=== PATIENT | male | born 1970 | race Caucasian/White ===

== ENCOUNTER 2022-03-30 08:15 | Emergency (ER) | payer MEDICAID ==
--- NOTE | 2022-03-30 08:34 | ED Physician Documentation ---
PD HPI ABD PAIN - Stated complaint Stated Complaint: HEAD PX/STOMACH DISCOMFORT - Chief complaint Chief Complaint: General - History obtained from History obtained from: Patient - History of Present Illness Timing - onset: Last night Timing - duration: Hours Timing - details: Gradual onset, Still present Quality: Sharp, Pain Location: LUQ, LLQ Radiation: No: Chest, , Lower back, Left flank, Left shoulder, Right flank, Right shoulder, Upper back Improved by: Laying still, Other Worsened by: Moving, Palpation Associated symptoms: Diarrhea, Other (chills). No: Fever, Nausea Similar symptoms before: Has not had sx before Recently seen: Not recently seen - Additional information Additional information: 51-year-old Maxi Alexander is previously healthy about 4 days ago he developed acute nausea vomiting and diarrhea. He developed diarrhea that persisted and he continues to have diarrhea. He has now developed abdominal pain in the left upper quadrant and he is here for evaluation. He has developed chills. Review of Systems Constitutional: reports: Chills. denies: Fever Eyes: denies: Decreased vision Ears: denies: Ear pain Nose: denies: Rhinorrhea / runny nose, Congestion Throat: denies: Sore throat Cardiac: denies: Chest pain / pressure, Palpitations Respiratory: denies: Dyspnea, Cough GI: reports: Abdominal Pain, Nausea, Vomiting (resolved), Diarrhea Skin: denies: Rash Musculoskeletal: denies: Neck pain, Back pain, Extremity pain Neurologic: denies: Generalized weakness, Focal weakness, Numbness PD PAST MEDICAL HISTORY - Present Medications Home Medications: Ambulatory Orders Medication Instructions Recorded Confirmed Ciprofloxacin HCl [Cipro] 500 mg PO BID #14 tablet 03/30/22 - Allergies Allergies/Adverse Reactions: Allergies Allergy/AdvReac Type Severity Reaction Status Date / Time amoxicillin Allergy Rash Verified 03/30/22 08:25 PD ED PE NORMAL - Vitals Vital signs reviewed: Yes (hypertensive) - General General: Alert and oriented X 3, No acute distress, Well developed/nourished - HEENT HEENT: Atraumatic, PERRL, EOMI - Neck Neck: Supple, no meningeal sign - Cardiac Cardiac: RRR, No murmur - Respiratory Respiratory: No respiratory distress, Clear bilaterally - Abdomen Abdomen: Normal bowel sounds, Soft, Non distended, No organomegaly, Other (LUQ tenderness and left sided tenderness to the abdomen in general. No garding or rebound. ) - Back Back: No CVA TTP, No spinal TTP - Derm Derm: Normal color, Warm and dry, No rash - Extremities Extremities: No deformity, No edema - Neuro Neuro: Alert and oriented X 3, platform builder 2-12 intact, No motor deficit, No sensory deficit, Normal speech Eye Opening: Spontaneous Motor: Obeys Commands Verbal: Oriented GCS Score: 15 - Psych Psych: Normal mood, Normal affect Results - Vitals Vitals: Vital Signs - 24 hr 03/30/22 03/30/22 03/30/22 08:25 10:29 11:39 Temperature 37.0 C 36.8 C Heart Rate 84 71 71 Respiratory 18 18 18 Rate Blood Pressure 148/107 H 146/100 H 135/93 H O2 Saturation 99 97 98 03/30/22 11:40 Temperature 36.8 C Heart Rate 71 Respiratory 18 Rate Blood Pressure 135/93 H O2 Saturation 98 Oxygen O2 Source Room air - Labs Labs: Laboratory Tests 03/30/22 03/30/22 08:40 08:40 WBC 7.7 RBC 5.00 Hgb 15.3 Hct 46.3 MCV 92.6 MCH 30.6 MCHC 33.0 RDW 12.8 Plt Count 236 MPV 10.3 Neut # (Auto) 5.1 Lymph # (Auto) 1.6 [place] # (Auto) 0.6 Eos # (Auto) 0.2 Baso # (Auto) 0.1 Absolute Nucleated RBC 0.00 Nucleated RBC % 0.0 Sodium 138 Potassium 4.1 Chloride 106 Carbon Dioxide 27 Anion Gap 5.0 L BUN 11 Creatinine 0.8 Estimated GFR (MDRD) 102 Glucose 106 H Calcium 9.0 Total Bilirubin 1.2 H AST 21 ALT 19 Alkaline Phosphatase 56 Total Protein 6.8 Albumin 4.1 Globulin 2.7 Albumin/Globulin Ratio 1.5 Lipase 30 - Rads (name of study) CT ab/pel Radiology: Prelim report reviewed (see below), EMP read indepedently PD Medical Decision Making - ED course Reviewed Lab Results: We ordered and reviewed get a complete blood count and Electrolytes, kidney and liver function and all tests were normal. The patient did have reproducible tenderness and a CT scan of the abdomen pelvis was undertaken with the following findings Impression: 1. Findings suspicious for acute colitis, likely infectious, less likely inflammatory. Correlate clinically. No changes of bowel obstruction or perforation. Nonspecific hepatic hypodensities and hyperdensity. These are likely cyst and him hemangiomas. Consider further evaluation of liver with liver protocol MRI on an outpatient basis. The patient appears to have an infectious colitis and he has had 5 days of diarrhea. He is placed on empiric antibiotic therapy and a stool is obtained for a PCR. This will not be available until tomorrow. We will place the patient on a course of Cipro. ED course: 51-year-old male with abdominal pain and diarrhea is diagnosed with acute colitis and we will place him on a course of Cipro. PCR is pending. Departure - Departure Disposition: Home, Self Care Clinical Impression: Colitis Condition: Stable Instructions: ED Gastroenteritis Bacterial Follow-Up: [facility] [Provider Group] Prescriptions: Ciprofloxacin HCl [Cipro] 500 mg PO BID #14 tablet Comments: Edward, today it looks like you have a bacterial infection in your colon likely related to some contamination of a food. We do have a test on the stool pending results will be back tomorrow. I have E scribed some Cipro to the [facility] in [place]. This is an antibiotic you will need to take twice per day. Drink extra fluids and it is okay to take Imodium which is an [id number] symptom control for the diarrhea. Discharge Date/Time: 03/30/22 12:57
[2022-03-30 08:44] LABS: BASOPHILS # (AUTO) 0.1 10^3/uL (0.0-0.1); BASOPHILS % (AUTO) 1.8 %; EOSINOPHILS # (AUTO) 0.2 10^3/uL (0.0-0.7); EOSINOPHILS % (AUTO) 2.9 %; HCT - HEMATOCRIT 46.3 % (42.0-52.0); HGB - HEMOGLOBIN 15.3 g/dL (14.0-18.0); LYMPHOCYTES # (AUTO) 1.6 10^3/uL (1.5-3.5); LYMPHOCYTES % (AUTO) 20.5 %; MEAN CORPUSCULAR HEMOGLOBIN 30.6 pg (27.0-31.0); MEAN CORPUSCULAR VOLUME 92.6 fL (80.0-94.0); MEAN PLATELET VOLUME 10.3 fL (7.4-11.4); MONOCYTES # (AUTO) 0.6 10^3/uL (0.0-1.0); NEUTROPHILS # (AUTO) 5.1 10^3/uL (1.5-6.6); NEUTROPHILS % (AUTO) 66.5 %; PLT - PLATELET COUNT 236 10^3/uL (130-450); RED CELL DISTRIBUTION WIDTH 12.8 % (12.0-15.0); WHITE BLOOD COUNT 7.7 x10^3/uL (4.8-10.8)
[2022-03-30 08:57] LABS: ALBUMIN 4.1 g/dL (3.2-5.5); ALBUMIN/GLOBULIN RATIO 1.5 (1.0-2.2); BILIRUBIN,TOTAL 1.2 mg/dL (0.2-1.0); CREATININE 0.8 mg/dL (0.6-1.2); POTASSIUM 4.1 mmol/L (3.5-5.0); TOTAL PROTEIN 6.8 g/dL (6.7-8.2)
[2022-03-30] MEDS ORDERED: iohexoL-300 100 ML VIAL ONE (09:04)
[2022-03-30] MEDS ORDERED: iohexoL-300 100 ML VIAL IVP ONE (09:28)
--- NOTE | 2022-03-30 09:54 | CT Report ---
PROCEDURE: ABDOMEN/PELVIS W INDICATIONS: L sided tender abdominal pain CONTRAST: 100ml Omnipaque 300 TECHNIQUE: After the administration of IV contrast, 5 mm thick sections acquired from the diaphragms to the symp hysis. 5 mm thick coronal and sagittal reformats were acquired. For radiation dose reduction, the f ollowing was used: automated exposure control, adjustment of mA and/or kV according to patient size. COMPARISON: None. FINDINGS: Image quality: Excellent. ABDOMEN: Lung bases: Lung bases are clear. Heart size is normal. Solid organs: The liver is normal size. There are a few hypodensities and a small hyperdensity in th e liver. The largest hypodensity in the left hepatic lobe measures 1.7 cm. Hyperdensity in the inferi or right hepatic lobe measures about 7 mm. The gallbladder is partially decompressed. Biliary tree is nondilated. The pancreas, spleen, and adrenal glands are normal. Kidneys demonstrate normal size and enhancement, without hydronephrosis. No hydroureter or ureteral calcification. Peritoneum and bowel: Stomach and small bowel are within normal limits. There is mild diffuse wall t hickening of the colon. There is mild hyperemia of the mucosa involving the descending colon and exte nding into the rectum. The proximal colon demonstrates mild mural edema. No significant pericolonic i nflammation. No extraluminal gas or adjacent fluid. Nodes and vessels: No retroperitoneal or mesenteric adenopathy by size criteria. Aorta and inferior vena cava are normal in size. Miscellaneous: No ventral hernias. PELVIS: Genitourinary: Bladder wall thickness is normal. Prostate gland is normal size with several coarse c alcifications present. Miscellaneous: No inguinal hernias or adenopathy. Bones: No suspicious bony lesions. No vertebral body compression fractures. IMPRESSION: 1. Findings suspicious for acute nelson colitis, likely infectious, less likely inflammatory. Correlate clinically. 2. No changes of bowel obstruction or perforation. 3. Nonspecific hepatic hypodensities and hyperdensity. These are likely cysts and hemangiomas. Consid er further evaluation of the liver with liver protocol MRI on an outpatient basis. Reviewed by: Kamila Weber MD on 03/30/2022 8:53 AM [facility] Approved by: Kamila Weber MD on 03/30/2022 8:53 AM [facility] Station ID: [id number]
[2022-03-30 11:40] VITALS: BP 135/93
[2022-03-31 21:07] LABS: ADENOVIRUS F 40/41 Not Detected (Not Detected); ASTROVIRUS Not Detected (Not Detected); C DIFFICILE TOXIN A/B Detected (Not Detected); CAMPYLOBACTER Not Detected (Not Detected); CRYPTOSPORIDIUM Not Detected (Not Detected); CYCLOSPORA CAYETANENSIS Not Detected (Not Detected); ENTAMOEBA HISTOLYTICA Not Detected (Not Detected); ENTEROAGGREGATIVE E COLI Not Detected (Not Detected); ENTEROPATHOGENIC E COLI Not Detected (Not Detected); ENTEROTOXIGENIC E COLI Not Detected (Not Detected); GIARDIA LAMBLIA Not Detected (Not Detected); NOROVIRUS GI/GII Not Detected (Not Detected); PLESIOMONAS SHIGELLOIDES Not Detected (Not Detected); ROTAVIRUS A Not Detected (Not Detected); SALMONELLA Not Detected (Not Detected); SAPOVIRUS Not Detected (Not Detected); SHIGA-TOXIN-PRODUCING E COLI Not Detected (Not Detected); SHIGELLA/ENTEROINVASIVE E COLI Not Detected (Not Detected); VIBRIO Not Detected (Not Detected); VIBRIO CHOLERAE Not Detected (Not Detected); YERSINIA ENTEROCOLITICA Not Detected (Not Detected)
== END 2022-03-30 12:57 | disposition home or self-care (01) ==
LOC: ED 08:15
DX: K52.9 Noninfective gastroenteritis and colitis, unspecified (principal)
CPT/HCPCS: 36415; 74177; 80053; 83690; 85025; 87507; 99283; 99284; Q9967

== ENCOUNTER 2023-03-28 10:14 | Emergency (ER) | payer MEDICAID ==
[2023-03-28] MEDS ORDERED: MELOXICAM 7.5 MG TABLET PO STA (11:52)
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
--- NOTE | 2023-03-28 12:59 | CT Report ---
PROCEDURE: Head WO INDICATIONS: head inj TECHNIQUE: Noncontrast 4.5 mm thick angled axial sections acquired from the foramen magnum to the vertex. For r adiation dose reduction, the following was used: automated exposure control, adjustment of mA and/or kV according to patient size. COMPARISON: None. FINDINGS: Image quality: Diagnostic CSF spaces: Basal cisterns are patent. Lateral ventricles are symmetric. Volume: Generally maintained Brain: No intracranial hemorrhage. Shields-white differentiation is grossly maintained. Craniofacial structures: No displaced fracture. Sinuses are clear. Orbits are intact. IMPRESSION: No acute intracranial abnormality. Reviewed by: Aureliano Sanz MD on 03/28/2023 12:57 PM PST Approved by: Aureliano Sanz MD on 03/28/2023 12:57 PM PST Station ID: [id number]
[2023-03-28 13:21] VITALS: BP 171/103; O2SAT 99
== END 2023-03-28 13:17 | disposition home or self-care (01) ==
LOC: ED 10:14
DX: S06.0X0A Concussion without loss of consciousness, initial encounter (principal); W50.0XXA Accidental hit or strike by another person, initial encounter; Y92.59 Other trade areas as the place of occurrence of the external cause; F17.200 Nicotine dependence, unspecified, uncomplicated
CPT/HCPCS: 70450; 99284; A9270